=== PATIENT | female | born 1975 | race Caucasian/White ===

== ENCOUNTER 2020-11-22 09:40 | Outpatient (CLI) | payer OTHER, SELFPAY | END 2020-11-22 09:41 | disposition home or self-care (01) | LOC: ANHCOVIDVC 09:41 | PROVIDERS: PCP Internal Medicine | DX: Z23 Encounter for immunization (principal) | CPT/HCPCS: 0001A; 91300 ==

== ENCOUNTER 2020-12-12 08:16 | Outpatient (CLI) | payer OTHER, SELFPAY | END 2020-12-12 08:17 | disposition home or self-care (01) | LOC: ANHCOVIDVC 08:16 | PROVIDERS: PCP Internal Medicine | DX: Z23 Encounter for immunization (principal) | CPT/HCPCS: 0002A; 91300 ==

== ENCOUNTER 2021-10-30 13:12 | Observation (INO) | payer OTHER, SELFPAY ==
--- NOTE | ~2021-10-30 | MR_ITS ---
EXAMINATION: MR brain/brain stem wo/w con DATE: 10/30/2021 19:12 INDICATION: Brain mass. TECHNIQUE: Magnetic resonance imaging (MRI) of the brain and brainstem was performed without and with 12 mL MultiHance intravenous contrast. Sequences included sagittal and axial T1-weighted FSE, axial diffusion-weighted FS EPI, axial T2*-weighted GRE, axial T2-weighted FLAIR Propeller, and axial T2-we ighted Propeller. Postcontrast sequences included axial, sagittal, and coronal T1-weighted FSE. Appar ent diffusion coefficient (ADC) maps were created. COMPARISON: None. FINDINGS: There is a 12 mm cyst in the left frontal lobe deep white matter. There is no intracranial hemorrhage or abnormal mass lesion. The ventricles are normal in size. There is mild mucosal thickeni ng in the ethmoid sinuses. The orbits are normal. IMPRESSION: 1. 12 mm benign cyst in the left frontal lobe deep white matter. Reviewed, dictated and finalized at location E. LER CAREGIVER
--- NOTE | ~2021-10-30 | CT_ITS ---
EXAMINATION: CT brain wo con DATE: 10/30/2021 13:56 INDICATION: 8 days of migraine headache with nausea and vomiting TECHNIQUE: Computed tomography (CT) of the head was performed without intravenous contrast. Sagittal and coronal reconstructions were performed. The mA was adjusted according to patient size. Iterative reconstruction technique was employed. The dose-length product was 605.33 mGy-cm. COMPARISON: None FINDINGS: No acute intracranial hemorrhage, acute infarction or abnormal extra axial fluid collection. Ventricl es are normal and symmetric. There is no left millimeter well-defined intra-axial cystic lesion in th e left frontal lobe without associated surrounding brain edema or solid nodular soft tissue component which favors a benign cyst including neuroenteric, neuroglial cysts. No mass/mass effect. The orbits , paranasal sinuses and mastoid air cells are normal. IMPRESSION: 1. 11 mm intra-axial cystic lesion in the left frontal lobe. The absence of a discernible nodular sof t tissue component or surrounding edema there is a benign cyst over either malignancy or infectious e tiologies but would recommend follow-up pre and postcontrast MRI or CT for more definitive determinat ion. 2. No other acute intracranial process. Reviewed, dictated and finalized at location A. OVOL[employer]IC FABRICATION TECHNICIAN IMPRESSION: 1. 11 mm intra-axial cystic lesion in the left frontal lobe. The absence of a d iscernible nodular soft tissue component or surrounding edema there is a benign cyst over either malignancy or infectious etiologies but would recommend follo w-up pre and postcontrast MRI or CT for more definitive determination. 2. No other acute intracranial process.
[2021-10-30 13:14] VITALS: BP 143/73; PULSE 98; RESP 16; TEMP 36.3; O2SAT 97
[2021-10-30 13:59] LABS: Basophils Absolute Auto 0.1 K/mm3 (0.0-0.1); Basophils Percent Auto 0.6 % (0.2-1.2); Eosinophils Absolute Auto 0.1 K/mm3 (0-0.3); Eosinophils Percent Auto 0.5 % (0-4.4); Hematocrit 47.4 % (37.0-47.0); Hemoglobin 15.5 g/dL (12.0-15.0); Immature Granulocyte Absolute 0.04 K/mm3 (0.00-0.031); Immature Granulocyte Percent A 0.4 % (0-0.5); Lymphocytes Absolute Auto 1.29 K/mm3 (0.9-3.2); Lymphocytes Percent Auto 13.1 % (18.3-44.2); Mean Corpuscular HGB Conc 32.7 g/dl (32-36); Mean Corpuscular Hemoglobin 33.8 pg (26-34); Mean Corpuscular Volume 103.3 fl (80-100); Mean Platelet Volume 12.4 fl (7.4-10.4); Monocytes Absolute Auto 0.7 K/mm3 (0.1-0.6); Monocytes Percent Auto 7.4 % (2.6-8.5); Neutrophils Absolute Auto 7.7 K/mm3 (1.3-6.7); Platelet Count Result 181 k/mm3 (150-375); Red Blood Count 4.59 M/mm3 (4.2-5.4); Red Cell Distribution Width 13.2 % (11.5-14.5); White Blood Count 9.9 K/mm3 (4.5-10.0)
[2021-10-30 14:17] LABS: Alanine Aminotransferase 13 U/L (4-35); Albumin Level 4.5 g/dL (3.5-5.1); Alkaline Phosphatase 65 U/L (38-126); Anion Gap 7 mmol/L (8-16); Aspartate Amino Transferase 23 U/L (14-36); Bilirubin,Total 0.8 mg/dL (0.2-1.3); Blood Urea Nitrogen 13 mg/dL (7-17); Calcium 8.9 mg/dL (8.4-10.2); Carbon Dioxide 24 mmol/L (22-30); Chloride 103 mmol/L (98-107); Estimated CRCL calculation 92 ml/min; Estimated Glomerular Filt Rate > 60; Glucose 106 mg/dL (65-110); Potassium 3.8 mmol/L (3.4-5.0); Sodium 134 mmol/L (137-145)
--- NOTE | 2021-10-30 14:18 | ED.GENADULT ---
HPI - General Adult General Chief complaint: Headache Stated complaint: migraine Time Seen by Provider: 10/30/21 13:24 Source: patient Mode of arrival: ambulatory Limitations: no limitations History of Present Illness HPI narrative: Patient is a 46-year-old female with chief complaint of frontal headache that has been increasingly worsening over the past 8 days.She states originally it was more to the right but now it is more localized to the left side. Patient reports that she has a history of headaches but generally they were made with the use of ibuprofen. Patient reports that she began having nausea with the headache as well and saw her primary care who prescribed her Zofran and tramadol. Patient reports that tramadol does meet the headaches some but after about 4 to 6 hours the intensity comes back. She reports that she has never had a headache be persistent so she became concerned. She reports she does have some photophobia. And hypersensitivity to sound. She reports that she has some of those symptoms on a daily basis that she has some sensory processing disorder. She denies facial asymmetry, changes in her speech, weakness or gait changes. Patient denies any fevers, chills, cough, shortness of breath or other signs of illness. Related Data Home Medications Medication Instructions Recorded Confirmed latanoprost drp 10/30/21 ondansetron 10/30/21 tramadol mg 10/30/21 10/30/21 Allergies Allergy/AdvReac Type Severity Reaction Status Date / Time morphine Allergy Severe Hives / Verified 10/30/21 13:14 Red Face Sulfa (Sulfonamide Allergy Unknown Itching Verified 10/30/21 13:14 Antibiotics) sulfanilamide Allergy Unknown Hives Verified 10/30/21 13:14 Review of Systems Review of Systems: CONSTITUTIONAL: Denies fever, chills, or sweats. EYES: Denies visual changes, redness, or discharge. ENT: Denies rhinorrhea, congestion, sore throat, or otalgia. CARDIOVASCULAR: Denies chest pain, palpitations, or edema. RESPIRATORY: Denies cough or dyspnea. GASTROINTESTINAL: Denies abdominal pain, nausea, vomiting, or diarrhea. GENITOURINARY: Denies dysuria or hematuria. SKIN: Denies rash or itching. MUSCULOSKELETAL: Denies back pain, joint pain, or myalgia. NEUROLOGIC: Reports headache, denies numbness, dizziness, or weakness. PSYCHIATRIC: Denies anxiety or depression. [facility] Family History Family History (Updated 04/17/16 @ 23:19 by DOCTOR UNKNOWN) Mother Family history of liver disease Family history of chronic obstructive pulmonary disease Family history of diabetes mellitus in first degree relative Family history of heart disease in male family member before age 55 Other Depression Diabetes mellitus Family history of malignant neoplasm Family history of mental disorder Hypertension Social History Social History Alcohol intake: current Exam Narrative: GENERAL: Well-appearing, well-nourished, and in no acute distress. HEAD: Normocephalic, atraumatic. EYES: PERRLA and EOMI. ENT: Nares clear, no rhinorrhea or epistaxis. Mucous membranes moist. Oropharynx without tonsillar hypertrophy exudate or other lesions. Bilateral TMs pearly davis nonbulging. No hemotympanum. NECK: Supple. Range of motion intact without rigidity. CHEST: Clear to auscultation. No respiratory distress. No wheezes rales or rhonchi HEART: Regular rate and rhythm. No murmur heard. Normal peripheral pulses. EXTREMITIES: Normal range of motion. No edema. SKIN: Warm, dry, no rash. NEURO: No focal deficits. Alert and oriented x3. Steady gait. Strength equal to extremities. heel and toe walk normal. PSYCH: Normal mood and affect. Course Vital Signs Vital signs: Vital Signs Temperature 97.4 F L 10/30/21 13:14 Pulse Rate 98 10/30/21 13:14 Respiratory Rate 16 10/30/21 13:14 Blood Pressure 143/73 H 10/30/21 13:14 Pulse Oximetry 97 10/30/21 13:14 Temperature 97.4 F L 10/30/21 13:14 Pulse Rate 96 0
[2021-10-30 15:07] LABS: Add Urine Microscopic? YES; Appearance Urine Clear (Clear); Bilirubin Urine Negative (Negative); Blood Urine Negative (Negative); Color Urine Yellow (Yellow); Glucose Urine UA Negative (Negative); Ketones Urine 2+ mg/dL (Negative); Leukocyte Esterase Ur Negative LEU/UL (Negative); Mucus Urine Rare /lpf; Nitrate Urine Negative (Negative); Protein Urine Negative (Negative); RBC Urine 0-2 /hpf (0-2); Specific Grav Ur 1.012 (1.001-1.035); Squamous Epithelial Cell Urine Rare /hpf (Few); Urobilinogen Urine Negative mg/dL (<2.0); WBC Urine 0-3 /hpf
[2021-10-30] MEDS: SODIUM CHLORIDE 0.9% IV 1,000 ML 999 ML IV CONT (15:46)
[2021-10-30] MEDS: diphenhydrAMINE HCl INJ 50 MG/ML VIAL 25 MG IV PUSH (15:47)
[2021-10-30] MEDS: KETOROLAC 15 MG/ML VIAL (*BKC) IV PUSH ×2 (15:48→21:03)
[2021-10-30 16:35] VITALS: BP 112/56; PULSE 96; RESP 16; O2SAT 99
--- NOTE | 2021-10-30 16:49 | ADMGEN ---
This patient, Carol Sanches, was admitted to 2 Medical Room 261-01. Patient/family oriented to hospital policies and general routines including ID bracelet, bed and alarms, visiting hours, pain management, procedures, bathroom and other care routines, personal items, smoking policy, room service/diet, and visiting hours. Information on how to activate the Rapid Response Team has been discussed. Patient/Family are encouraged to report perceived risks to care and to ask questions if they do not understand what they are told or what they should do.
[2021-10-30 18:19] VITALS: O2SAT 99
[2021-10-30 18:39] VITALS: BP 110/70; PULSE 81; RESP 15; TEMP 36.4; O2SAT 97
[2021-10-30 19:40] VITALS: BP 98/46; PULSE 81; RESP 18; TEMP 36.6; O2SAT 98
[2021-10-30 20:56] VITALS: O2SAT 98
--- NOTE | 2021-10-30 21:12 | PM.IMHP ---
H&P: HPI History of Present Illness Date/Time: 10/30/21 21:12 this is a 46-year-old female patient who has a history of having headaches versus migraines. 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 The patient came to the emergency room today with a frontal headache that has been getting worse over the last 8 days. The patient stated that she has had several CT scans and MRIs in the past and have not seen any thing abnormal. It the patient also has been having nausea and was prescribed Zofran and tramadol via primary care doctor. The tramadol does relieve the headaches some but also makes her nauseated as well. The patient was having some phonophobia and hypersensitivity to sound earlier today. The symptoms have been daily for the last 8 days. Patient has facial symmetric a and no changes in her speech. She has no weakness or gait changes. She denies any fever chills. Brain CT was read as the following1. 11 mm intra-axial cystic lesion in the left frontal lobe. The absence of a discernible nodular soft tissue component or surrounding edema there is a benign cyst over either malignancy or infectious etiologies but would recommend follow-up pre and postcontrast MRI or CT for more definitive determination. 2. No other acute intracranial process. the ED provider called [facility]geon who recommended that the patient have an MRI. MRI is are not able to be performed from the emergency room. I discussed the case with Dr. Garcia who was agreeable with admitting the patient into the hospital. Patient did have an MRI performed at the recommendation of [facility]. Again and was read as 12 mm benign cyst in the left frontal lobe deep white matter. The patient was given IV fluids Benadryl Toradol and Decadron in the emergency room. ( ED physician here noted it her conversation with neurosurgeon: Consult with [facility] Dr Gallardo who has reviewed patient CT. He suspects benign finding, but requires MRI w&w/o. He will place patient on waiting list for [facility]. He recommends admission to hospitalist service o patient can have MRI. then push those images to [facility] and he will review and give further instruction. He states if MRI is appropriate for outpatient follow up the patient can be d/c at that time, but If patient requires transfer it can be done via hospitalist service. He states patient pain could be treated without restriction to migraine/pain protocol. Patient has been updated on plan of care.) the patient is being admitted to observation status on the date of service of to 07/09/2022. Chief Complaint: Headache and nausea Review of Systems Review of Systems: All systems reviewed & are unremarkable except as noted in HPI and below Constitutional: Constitutional: Reports as per HPI and Reports no additional constitutional complaints Eyes: Eyes: Reports as per HPI and Reports no additional eye complaints ENT: Reports system reviewed and no additional complaints, except as documented and Reports Normal hearing present Cardiovascular: Cardiovascular: Reports no additional cardiovascular complaints Respiratory: Respiratory: Reports no additional respiratory complaints and Reports no additional respiratory complaints Gastrointestinal: Gastrointestinal: Reports as per HPI and Reports no additional gastrointestinal complaints Musculoskeletal: Musculoskeletal: Reports no additional musculoskeletal complaints Integumentary/Breasts: Skin/Breast: Reports system reviewed and no additional complaints, except as docu and Reports as per HPI Neurologic: Reports system reviewed and no additional complaints, except as documented, Reports as per HPI and Reports Normal hearing present Psychiatric: Psychiatric: Reports no additional psychiatric complaints and Reports as per HPI Endocrine: Endocrine: Reports no additional endocrine complaints
[2021-10-30] MEDS: SUMAtriptan SUCCINATE 6 MG/0.5 ML VIAL SUB-Q (21:49)
[2021-10-30] MEDS: ONDANSETRON INJ 4 MG/2 ML VIAL IV PUSH (21:57)
[2021-10-31] MEDS: SODIUM CHLORIDE 0.9% IV 1,000 ML 100 ML IV CONT ×2 (00:36→10:41)
[2021-10-31 05:10] VITALS: BP 98/54; PULSE 97; RESP 18; TEMP 36; O2SAT 99
[2021-10-31 06:01] LABS: Basophils Percent Auto 0.2 % (0.2-1.2); Hematocrit 42.4 % (37.0-47.0); Hemoglobin 13.6 g/dL (12.0-15.0); Immature Granulocyte Absolute 0.04 K/mm3 (0.00-0.031); Immature Granulocyte Percent A 0.4 % (0-0.5); Mean Corpuscular HGB Conc 32.1 g/dl (32-36); Mean Corpuscular Hemoglobin 33.4 pg (26-34); Mean Corpuscular Volume 104.2 fl (80-100); Mean Platelet Volume 12.2 fl (7.4-10.4); Monocytes Absolute Auto 0.3 K/mm3 (0.1-0.6); Monocytes Percent Auto 2.6 % (2.6-8.5); Neutrophils Absolute Auto 8.9 K/mm3 (1.3-6.7); Neutrophils Percent Auto 88.8 % (45.5-73.1); Platelet Count Result 171 k/mm3 (150-375); Red Blood Count 4.07 M/mm3 (4.2-5.4); Red Cell Distribution Width 13.1 % (11.5-14.5)
[2021-10-31 06:15] LABS: Lactic Acid Reflex 0.8 mmol/L (0.7-2.1)
[2021-10-31 06:19] LABS: Alanine Aminotransferase 11 U/L (4-35); Albumin Level 3.8 g/dL (3.5-5.1); Alkaline Phosphatase 44 U/L (38-126); Anion Gap 8 mmol/L (8-16); Aspartate Amino Transferase 23 U/L (14-36); Bilirubin,Total 0.8 mg/dL (0.2-1.3); Blood Urea Nitrogen 16 mg/dL (7-17); Calcium 8.6 mg/dL (8.4-10.2); Carbon Dioxide 17 mmol/L (22-30); Chloride 110 mmol/L (98-107); Estimated CRCL calculation 92 ml/min; Estimated Glomerular Filt Rate > 60; Glucose 115 mg/dL (65-110); Magnesium 1.9 mg/dL (1.6-2.3); Potassium 4.5 mmol/L (3.4-5.0); Sodium 135 mmol/L (137-145)
[2021-10-31 06:43] LABS: Vitamin D 25 Hydroxy 12.9 ng/mL
[2021-10-31 07:02] LABS: Thyroid Stimulating Hormone Reflex 0.226 uIU/mL (0.465-4.68)
[2021-10-31 08:01] LABS: Free T4 Free Thyroxine Reflex 1.11 ng/dL (0.78-2.19)
[2021-10-31] MEDS: ONDANSETRON INJ 4 MG/2 ML VIAL IV PUSH (08:17)
[2021-10-31] MEDS: PANTOPRAZOLE SODIUM IV 40 MG VIAL IV PUSH ×2 (08:17→21:04)
[2021-10-31 08:50] LABS: SARS-CoV-2 RNA PCR Negative
[2021-10-31] MEDS: KETOROLAC 15 MG/ML VIAL (*BKC) IV PUSH ×2 (10:42→23:43)
--- NOTE | 2021-10-31 11:11 | WPDNEURCNPN ---
Assessment and Plan Additional Plan 1 11mm intra-axial cystic lesion in the left frontal lobe with no sirena cystic edema for which MRI was indicated and MRI was followed with ,which documented 12mm benign cyst in the left frontal lobe deep white matter 2. recurrent migraines and treatment as planned Consult date: 10/31/21 HPI: Carol Sanches is a 46 year old female admitted to the hospital for the complaints of frontal headaches of increasing severity over the last 8 days and more localized on the left side in addition to the ongoing history of chronic headaches for which she has been taking simple pain medications regularly. This time with the headache, she started having nausea initially she saw her primary care physician who prescribed Zofran and tramadol , headaches were somewhat relieved but subsequently became more intense ,she has never had such a bad headache which is persistent in duration but she gave no history of generalized symptomatology ,her home medications included tramadol initial examination was normal that is nonfocal but it was documented that she has the history of diabetes mellitus and depression [facility] was consulted because of the increasing severity headache and with no history of such headaches in the past and also abnormal ct head , he placed the patient on the waiting list and suggested to have the MRI, investigations here documented 11mm intra-axial cystic lesion in the left frontal lobe which could be a benign cyst further evaluation recommended Review of Systems Review of Systems: All systems reviewed & are unremarkable except as noted in HPI and below PMFSH Past Medical History Medical History Chronic back pain Glaucoma Surgical History Surgical History H/O left breast biopsy benign H/O tubal ligation History of endometrial ablation Family History Family History Mother Family history of liver disease Family history of chronic obstructive pulmonary disease Family history of diabetes mellitus in first degree relative Family history of heart disease in male family member before age 55 Other Depression Diabetes mellitus Family history of malignant neoplasm Family history of mental disorder Hypertension Social History Social History Social History: the patient is and lives with her . It she has 3 children. She is no longer working due to a back injury. The patient continues to smoke about half a pack a cigarettes to a pack a cigarettes a day. She is not interested in smoking cessation the patient denies any alcohol marijuana or illicit drugs. Her is her durable power bankruptcy attorney for healthcare. Code status full code Smoking packs per day: 0.5 Smoking cigarettes per day: 10.0 Smoking status: Current every day smoker Tobacco type: cigarettes Alcohol intake: never Substance use: never Spiritual care concerns: No Meds Home Medications and Allergies Home Medications Medication Instructions Recorded Confirmed Type ondansetron 4 mg PO Q6H PRN 10/30/21 10/30/21 History tramadol 50 mg PO Q6H PRN 10/30/21 10/30/21 History Allergies Allergy/AdvReac Type Severity Reaction Status Date / Time morphine Allergy Severe Hives / Verified 10/30/21 13:14 Red Face Sulfa (Sulfonamide Allergy Unknown Itching Verified 10/30/21 13:14 Antibiotics) sulfanilamide Allergy Unknown Hives Verified 10/30/21 13:14 Vital Signs Vital Signs - 24 hr 10/30/21 13:14 10/30/21 16:35 10/30/21 18:19 Temperature 36.3 C L Pulse Rate 98 96 Respiratory Rate 16 16 Blood Pressure 143/73 H 112/56 L Pulse Oximetry 97 99 99 10/30/21 18:39 10/30/21 19:40 10/30/21 20:56 Temperature 36.4 C 36.6 C Pulse Rate 81 81 Respiratory Rate 15 18 Blood Pressure 11
[2021-10-31 11:49] LABS: Total Triiodothyronine (T3) 0.99 NG/ML (0.97-1.69)
--- NOTE | 2021-10-31 13:01 | PM.IMPN ---
Progress Note: A&P Assessment and Plan (1) Headache: Qualifiers: Headache chronicity pattern: acute headache Headache type: unspecified Intractability: not intractable Qualified Code(s): R51.9 - Headache, unspecified Code(s): R51.9 - Headache, unspecified Status: Acute Assessment and Plan: Hx of high-level of estrogen at times Usually Motrin or Ultram takes care of her headaches versus migraines Continue Fioricet Supportive care CT of head reviewed MRI-->12 mm benign cyst in the left frontal lobe deep white matter Neurology consulted, recommendations appreciated (2) Glaucoma: Code(s): H40.9 - Unspecified glaucoma Status: Chronic Assessment and Plan: Continue home meds (3) Chronic back pain: Code(s): M54.9 - Dorsalgia, unspecified; G89.29 - Other chronic pain Status: Chronic Assessment and Plan: Continue home meds (4) Brain lesion: Code(s): G93.9 - Disorder of brain, unspecified Status: Acute Assessment and Plan: [facility]geon, Dr. Sam, reviewed CT and suspects benign finding, but requires MRI w&w/ Patient on waiting list for [facility] outpatient Subjective Date/time seen: 10/31/21 13:01 Interval history: Pt seen and evaluated; labs, vs,diagnostic results, consult notes reviewed; pt continue with MARINO 03/29 Review of Systems Review of Systems: All systems reviewed & are unremarkable except as noted in HPI and below Exam Const: General: no acute distress, alert and awake Orientation/consciousness: patient oriented x3 HENMT: Head: normocephalic and atraumatic Ears: hearing grossly normal bilaterally and external ears normal Face and sinus: face symmetric Mouth: Yes Normal oral and palatal mucosa present Eyes: EOM: EOMs intact bilaterally Neck: Neck: full ROM, trachea midline and no JVD Resp: Effort & Inspection: normal respiratory effort Auscultation: clear to auscultation bilaterally Cardio: Jugular venous distension: no JVD Rate: regular rate Rhythm: regular rhythm Heart sounds: S1 normal heart sound present and S2 normal heart sound present GI: Inspection: normal to inspection GI Palp: Yes Soft to palpation Percussion: Yes normal to percussion Auscultation: normal bowel sounds : General: Yes no CVA tenderness Skin: General skin exam: normal color Rashes: no rashes Neuro: General: patient oriented x3 and no focal motor deficits Speech: normal speech Extrem: General: no clubbing, cyanosis or edema Psych: Appearance: grossly normal Affect: normal affect Judgement: Good judgement present (Psych) Objective Data Vital Signs Vital Signs: Vital Signs - 24 hr 10/30/21 13:14 10/30/21 16:35 10/30/21 18:19 Temperature 36.3 C L Pulse Rate 98 96 Respiratory Rate 16 16 Blood Pressure 143/73 H 112/56 L Pulse Oximetry 97 99 99 10/30/21 18:39 10/30/21 19:40 10/30/21 20:56 Temperature 36.4 C 36.6 C Pulse Rate 81 81 Respiratory Rate 15 18 Blood Pressure 110/70 98/46 L Pulse Oximetry 97 98 98 10/31/21 05:10 Temperature 36.0 C L Pulse Rate 97 Respiratory Rate 18 Blood Pressure 98/54 L Pulse Oximetry 99 Intake/Output Intake/Output: Intake & Output 10/28/21 10/29/21 10/30/21 10/31/21 23:59 23:59 23:59 23:59 Intake Total 1000 1000 Output Total 300 Balance 1000 700 Meds/Results Medications: Active Medications Generic Name Dose Route Start Last Admin Trade Name Freq PRN Reason Stop Dose Admin Diphenhydramine HCl 25 mg 10/30/21 21:11 Diphenhydramine Hcl Inj 50 Mg/Ml Vial IV PUSH Q4H PRN Itching Sodium Chloride 1,000 mls @ 100 mls/hr 10/30/21 23:15 10/31/21 10:41 Normal Saline Iv IV CONT 100 mls/hr .Q10H JEVON Administration Acetaminophen 1,000 mg in 100 mls @ 400 mls/hr 10/30/21 23:14 Ofirmev 1,000 Mg Ivpb IVPB 10/31/21 23:13 Q6H PRN Pain Rated 4-6 Ketorolac Tromethamine 15 mg 10/30/21 20:44 10/31/21 1
[2021-10-31 14:00] VITALS: BP 108/52; PULSE 73; RESP 18; TEMP 36.4; O2SAT 98
[2021-10-31 20:28] VITALS: BP 100/58; PULSE 68; RESP 18; TEMP 37; O2SAT 99
--- NOTE | 2021-10-31 22:56 | PC.NURSE ---
Called with room at [place] [id number] Bed 1. Called and Spoke with Corwin saunders soon to be nurse at [facility]. Call placed to [facility]. They said they would probably be about an hour. Called [facility] back with estimated time of an hour from call placed at [phone]. Nicole Salcido aware and signed patient transfer form. it service continuity supervisor also aware that pt is transferring to [facility]. Disc from x ray added to transfer folder.
--- NOTE | 2021-10-31 23:47 | PC.NURSE ---
ambulance is leaving at [id number]. Pt on way to [place].
--- NOTE | 2021-11-05 12:02 | PM.TDS ---
Transfer Discharge Sum: Prov Provider Date of admission: 10/30/21 15:52 Primary care physician: Todd Bonds, Admitting clinician: Dale Garcia MD Consults: 10/30/21 Consult to Physician Routine Comment: Consulting Provider: Gustavo Oconnor at home independent call center agent/MD group to consult: Neurology Reason for consultation: benign frontal lobe cyst with headaches Has provider been notified: Yes DS: Admitting Diagnosis Discharge Date 10/31/21benign brain tumor Admitting Diagnosis benign brain tumor DS: Discharge Diagnosis Discharge Diagnosis (1) Brain lesion: Code(s): G93.9 - Disorder of brain, unspecified Status: Acute Assessment and Plan: Head CT 10/30/21 14:04 IMPRESSION: 1. 11 mm intra-axial cystic lesion in the left frontal lobe. The absence of a discernible nodular soft tissue component or surrounding edema there is a benign cyst over either malignancy or infectious etiologies but would recommend follow-up pre and postcontrast MRI or CT for more definitive determination. 2. No other acute intracranial process. (2) Headache: Qualifiers: Headache chronicity pattern: acute headache Headache type: unspecified Intractability: not intractable Qualified Code(s): R51.9 - Headache, unspecified Code(s): R51.9 - Headache, unspecified Status: Acute Assessment and Plan: could be related to hormones. The patient stated that she has a high-level of estrogen at times. I recommended multiple therapies for the patient however the patient stated that this is chronic and that usually Motrin or Ultram takes care of her headaches versus migraines. I continued with Zofran and she stated that the tramadol has not been helping so I did continue with that. She stated that the Toradol did help so I continue with that and gave her Zofran and Protonix for GI protection. I continued with the Benadryl as the patient stated this did help her some. I ordered Imitrex as well I asked her Fioricet helped her in the past and she stated she does not recall taking that. However her blood pressure is low at this time and I do not think that it is appropriate to give narcotics at this time. A benign frontal lobe cyst was found And the ED provider at [facility] spoke with the neurosurgeon at [facility]. they requested to have the MRI push through so they can review it. I also consulted the neurologist here. I spoke to Dr. Garcia who agreed that the patient could be admitted into the hospital here I also spoke with Dr. Li who recommended steroids if the patient has any neurological deficits or cerebral edema. The patient appears to have neither so I did not start any steroids. (2) Glaucoma: (3) Glaucoma: Code(s): H40.9 - Unspecified glaucoma Status: Chronic (4) Chronic back pain: Code(s): M54.9 - Dorsalgia, unspecified; G89.29 - Other chronic pain Status: Chronic Assessment and Plan: The patient takes ultram Transfer Discharge Sum: Med Medications Active and Home Medications: Home Medications ondansetron 4 mg PO Q6H PRN 10/30/21 [History Confirmed 10/30/21] tramadol 50 mg PO Q6H PRN 10/30/21 [History Confirmed 10/30/21] The patient was transferred to [facility] to neuro surgery. Transfer Discharge Sum: Hosp Hospital Course Hospital course: Date/Time: 10/30/21 21:12 this is a 46-year-old female patient who has a history of having headaches versus migraines. 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 The patient came to the emergency room today with a frontal headache that has been getting worse over the last 8 days. The patient stated that she has had several CT scans and MRIs in the past and have not seen any thing abnormal. It the patient also has been having nausea and was prescribed Zofran and tramadol via primary care doctor. The tramadol finney
== END 2021-10-31 23:50 | disposition short-term general hospital (02) ==
LOC: ANHED 16:18 → ANH2MED 16:21
PROVIDERS: Nurse Practitioner; Physician Assistant; Admitting Provider Family Medicine; Emergency Provider Emergency Medicine; PCP Internal Medicine; Visit Provider Family Medicine
DX: G93.9 Disorder of brain, unspecified (principal); R51.9 Headache, unspecified; M54.9 Dorsalgia, unspecified; G89.29 Other chronic pain; H40.9 Unspecified glaucoma; F17.210 Nicotine dependence, cigarettes, uncomplicated; Z20.822 Contact with and (suspected) exposure to COVID-19; Z79.899 Other long term (current) drug therapy
CPT/HCPCS: 36415; 70450; 70553; 80053; 81001; 82306; 82728; 83605; 83735; 84439; 84443; 84480; 85025; 96361; 96372; 96374; 96375; 96376; 99285; A9577; C9113; C9803; G0378; G0379; J1100; J1200; J1885; J2405; J3030; J7030; U0003; U0005

== ENCOUNTER 2024-01-26 08:18 | Outpatient (CLI) | payer OTHER, SELFPAY | END 2024-01-26 08:19 | disposition home or self-care (01) | LOC: ANHSURGERY 08:24 | PROVIDERS: PCP Internal Medicine; Visit Provider Obstetrics & Gynecology | DX: Z01.818 Encounter for other preprocedural examination (principal); D25.9 Leiomyoma of uterus, unspecified | CPT/HCPCS: 36415; 86850; 86900; 86901 ==

== ENCOUNTER 2024-01-31 00:55 | Day surgery (SDC) | payer OTHER, SELFPAY ==
[2024-01-25 13:32] VITALS: BMI 27.1
--- NOTE | 2024-01-25 13:43 | PC.NURSE ---
Report to the Outpatient Waiting Room, entrance under the green pavilion located off [facility], at time _0600_ on date _21-23-2047_. Planned Procedure Time: _0730_. Time changes happen often and if your time is changed the preop area will call you the afternoon before. - You and your visitor will be asked to self-screen and do not enter if you have any COVID symptoms. - A mask is optional within the hospital at this time. Patients may have clear liquids (water, carbonated beverages, clear teas, apple juice) until 3 hours prior to surgery with a maximum of 20 ounces. - No food from midnight until time of surgery Take the following medications with a SIP of water the morning of surgery: ___Ubelvey if needed. DO NOT STOP ANY OF YOUR OTHER PRESCRIPTION MEDICATIONS PRIOR TO SURGERY ?EXCEPT THE FOLLOWING Medications to discontinue per physician ___All vitamins Date to take last [id number] Please no make-up, nail persian, hairspray, perfume, deodorant, or body powder the day of surgery. No jewelry (including any body piercings) or valuables the day of surgery, leave them at home. Please take a shower or bath the night before, or the morning of, surgery with an antibacterial soap. Wear comfortable, loose fitting clothing. - Jewelry must be removed prior to entering the operating room. Rings and piercings that are not removed may be cut off. - The hospital will not accept responsibility for valuables. - Please leave all valuables, including medications, at home the day of surgery. If you are going home after surgery, a licensed restaurant delivery driver must drive you home. - NO public transportation without another adult if you receive anesthesia. - We recommend that an adult stay with you for 24 hours following discharge. - We also recommend that you do not drive, make important decision, drink alcoholic beverages, or take any drugs that were not prescribed by your health care provider for at least 24 hours after your discharge time. Follow any additional instructions given to you from your surgeon. If you or anyone in your household have experienced Covid symptoms in the past week, please notify your surgeon or the nurse liaison at the phone number below for possible testing. Telephone instructions given to __Renae___and asked if any additional questions and then verbalized understanding. Patient advised to call surgeon office or pre surgery nurse liaison [phone] if any additional questions.
--- NOTE | 2024-01-30 20:42 | PM.IMHP ---
H&P: HPI History of Present Illness Date/Time: 01/30/24 20:42 Chief Complaint: pelvic pain Narrative: Carol is a 49yo [id number], who presents for scheduled surgery. She has had pelvic pain since about April 2023 and her PCP ordered a CNC SPECIALIST US which showed two small fibroids, no cysts. She has a h/o tubal. 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 But the ablation did not help with her pain. Since Apr 2023, the pain has gotten significantly worse. She reports not being able to lay on her right side at night due to the pain. She also feels a lot of PMS/mood changes during the month. The week after her period is the only time she feels normal . Most of her pain is on the RLQ; did have some issues (extra bleeding, issue with her incision during her tubal and can feel some pulling on the inside from that). She denies any menopausal symptoms of hot flashes or night sweats. Aygestin was not covered by her insurance, so she has been taking Norethindrone. She reports it has not helped at all with her PMS or pain. She is very frustrated with her pain and understands that the next step is hysterectomy and she's ready for that. She is about to start her cycle and reports her right sided pelvic pain is severe and has pain into her back. She is having to rearrange her life/work to deal with this pain. Review of Systems Constitutional: Constitutional: Denies chills, Denies fever(s) and Denies headache(s) Eyes: Eyes: Denies change in vision ENT: Denies dizziness and Denies headache(s) Cardiovascular: Cardiovascular: Denies chest pain and Denies dyspnea Respiratory: Respiratory: Denies cough and Denies dyspnea Gastrointestinal: Gastrointestinal: Denies abdominal pain and Denies change in stool character Genitourinary: Genitourinary: Denies abnormal menses, Reports pelvic pain, Denies vaginal discharge, Denies vaginal odor and Denies vaginal pruritus Neurologic: Denies dizziness and Denies headache(s) Psychiatric: Psychiatric: Denies anxiety and Denies depression [facility] Past Medical History Medical History Chronic back pain Glaucoma Surgical History Surgical History H/O left breast biopsy benign H/O tubal ligation History of dilation and curettage 1999 History of endometrial ablation Family History Family History Mother Family history of liver disease Family history of chronic obstructive pulmonary disease Family history of diabetes mellitus in first degree relative Family history of heart disease in male family member before age 55 Sibling Sjogren syndrome, unspecified Other Depression Diabetes mellitus Family history of malignant neoplasm Family history of mental disorder Hypertension Social History Social History Social History: the patient is and lives with her . It she has 3 children. She is no longer working due to a back injury. The patient continues to smoke about half a pack a cigarettes to a pack a cigarettes a day. She is not interested in smoking cessation the patient denies any alcohol marijuana or illicit drugs. Her is her durable power deputy commonwealth's attorney for healthcare. Code status full code Smoking packs per day: 1.5 Smoking cigarettes per day: 30.0 Years smoked: 12 Smoking pack-years: 18.00 Smoking status: Former smoker Tobacco type: cigarettes Smoking end date: 01/24/22 Alcohol intake: never Substance use: never Substance use type: does not use Do You Feel Safe in your Home?: Yes Lack of Transportation: No Lack of Food: Never True Current Housing: I Have Housing Concerned About Future Housing: No Difficulty Paying Gas/Electric [place]
[2024-01-31] VITALS (10 sets, daily range): BP systolic 100–138; BP diastolic 51–87; PULSE 70–119; RESP 12–18; TEMP 36.1–37.1; O2SAT 94–100
[2024-01-31] MEDS: LACTATED RINGERS 1,000 ML 30 ML IV CONT ×2 (06:50→09:27)
[2024-01-31] MEDS: KETOROLAC 15 MG/ML VIAL (*BKC) IV PUSH (06:51)
[2024-01-31] MEDS: SCOPOLAMINE 1 MG PATCH 1 PATCH TRANSDERM (06:53)
--- NOTE | 2024-01-31 07:13 | WPDHPUPDATE1 ---
History and Physical Update Update Date/Time: 01/31/24 07:13 History and Physical has been reviewed, including an updated exam of the patient. There are NO changes in the patient's condition. Risks, benefits, and alternatives have been discussed and questions answered. Patient agrees to proceed with robotic assisted total laparoscopic hysterectomy with bilateral salpingectomy and cystoscopy.
--- NOTE | 2024-01-31 07:16 | WPDANESEPPF ---
Anes - Initial Pre Proc Eval Procedure: Operation Date: 01/31/24 07:30 Proposed Procedures p Robotic Assisted Total Laparoscopic Hysterectomy with Bilateral Salpingectomy - Jane Hernandez MD Date/Time: 01/31/24 07:16 Surgeon: Jane Hernandez MD Pre Op Diagnosis: uterine fibroids Patient Data Age: 49 Gender: F Height: 1.57 m Weight: 67.6 kg Last Vital Signs Temp 98.2 F 01/31/24 06:12 Pulse 119 H 01/31/24 06:12 Resp 18 01/31/24 06:12 BP 138/87 01/31/24 06:12 Pulse Ox 98 01/31/24 06:12 O2 Del Method Room Air 01/31/24 06:12 Allergies Allergy/AdvReac Type Severity Reaction Status Date / Time morphine Allergy Severe Hives / Verified 01/31/24 06:27 Red Face Sulfa (Sulfonamide Allergy Severe Itching Verified 01/31/24 06:27 Antibiotics) sulfanilamide Allergy Severe Hives Verified 01/31/24 06:27 metoclopramide [From Reglan] AdvReac Severe Anxiety Verified 01/31/24 06:27 prochlorperazine AdvReac Severe Anxiety Verified 01/31/24 06:27 [From Compazine] cetirizine [From Zyrtec-D] AdvReac Mild Other Verified 01/31/24 06:27 pseudoephedrine AdvReac Mild Other Verified 01/31/24 06:27 [From Zyrtec-D] Home Medications Medication Instructions Recorded Confirmed Type ubrogepant 50 mg tablet (Ubrelvy) 100 mg PO DAILY PRN Migraine 11/10/23 01/31/24 History Headache norethindrone (contraceptive) 0.35 0.35 mg PO DAILY #84 tabs 11/16/23 01/31/24 Rx mg tablet Lactobacillus 40-Bifidobact 1 cap PO DAILY 01/25/24 01/31/24 History 3-S.thermophilus 100 billion cell capsule (Probiotic) cyanocobalamin (vitamin B-12) 1,000 mcg PO DAILY 01/25/24 01/31/24 History 1,000 mcg tablet (Vitamin B-12) magnesium glycinate 100 mg tablet 200 mg PO DAILY 01/25/24 01/31/24 History thiamine HCl (vitamin B1) 100 mg 100 mg PO DAILY 01/25/24 01/31/24 History tablet (Vitamin B-1) Patient hx anesthesia problems: post op nausea/vomiting Family hx anesthesia problems: none Results Review: All pre-operative results and documents have been reviewed as part of the pre-operative evaluation. [facility] Past Medical History Medical History Chronic back pain Glaucoma Surgical History Surgical History H/O left breast biopsy benign H/O tubal ligation History of dilation and curettage 1998 History of endometrial ablation Family History Family History Mother Family history of liver disease Family history of chronic obstructive pulmonary disease Family history of diabetes mellitus in first degree relative Family history of heart disease in male family member before age 55 Sibling Sjogren syndrome, unspecified Other Depression Diabetes mellitus Family history of malignant neoplasm Family history of mental disorder Hypertension Social History Social History Social History: the patient is and lives with her . It she has 3 children. She is no longer working due to a back injury. The patient continues to smoke about half a pack a cigarettes to a pack a cigarettes a day. She is not interested in smoking cessation the patient denies any alcohol marijuana or illicit drugs. Her is her durable power sports attorney for healthcare. Code status full code Smoking packs per day: 1.5 Smoking cigarettes per day: 30.0 Years smoked: 12 Smoking pack-years: 18.00 Smoking status: Former smoker Tobacco type: cigarettes Smoking end date: 01/24/22 Alcohol intake: never Substance use: never Substance use type: does not use Do You Feel Safe in your Home?: Yes Lack of Transportation: No Lack of Food: Never True Current Housing: I Have Housing Concerned About Future Housing: No Difficulty Paying Gas/Electric Bills: No Difficulty Paying fo
[2024-01-31] MEDS: ceFAZolin 2 GM/D5W 50 ML 2 GM/50 ML BAG IVPB (07:28)
[2024-01-31] MEDS: metroNIDAZOLE 500 MG/ISO 100ML 500 MG/100 ML BAG 100 MG IVPB (07:35)
[2024-01-31] MEDS: LIDO 1%/EPINEPHRINE 1:100,000 20 ML VIAL 30 ML INFILTRATE (08:58)
--- NOTE | 2024-01-31 09:24 | W.PM.PROC2 ---
Procedure Note - Detailed Date of Procedure 01/31/24 Pre-op Diagnosis Uterine fibroids Pelvic pain Post-op Diagnosis Same Procedure Performed Robotic assisted total laparoscopic hysterectomy with bilateral salpingectomy and cystoscopy Surgeon Jane Hernandez MD Corporate Travel Manager [employer] Anesthesia General and Local (20cc of 1% lidocaine w/ epi) Findings Uterus only sounded to 7cm; but had h/o ablation. Normal appearing multiparous cervix, 3cm. History of tubal ligation. Left ovary with 2-3cm simple appearing cyst. Right ovary normal. Small amount of endometriosis noted on bladder and posterior cul de sac. Normal bladder without lesions/masses that filled w/o issues. Bilateral ureteral efflux noted. Good hemostasis at end of case. Uterus/tubes: 186g Description of Procedure Carol was taken to the operating room where she was placed under general anesthesia without issues. She received 2 g Ancef and 500mg Metronidazole. She was then prepped and draped in the usual sterile fashion in the dorsal lithotomy position with her legs in low Harshal stirrups, her arms tucked at her side, with a strap over her chest. A time-out was performed. My attention was turned down below where a choi catheter was placed. A bivalve speculum was placed within the vagina. The cervix was easily identified and the anterior lip of the cervix was grasped with single-tooth tenaculum. The uterus was then sounded to 7cm. The cervix was serially dilated to allow for the MUARICE uterine manipulator; which was placed w/o issue (6cm tip with 3cm cervical ring). My gloves were changed and attention was then turned to the abdomen. A 5 mm trocar was placed under direct visualization at Avendano's point without issue. Once intra-abdominal placement was confirmed, the abdomen was insufflated with carbon dioxide gas. An abdominal survey was performed and the above findings were noted. Two additional ports were placed on the right and left side and the camera port was placed supra-umbilically under direct visualization without issues. The 5mm port was switched out for the accessory port under direct visualization. The patient was then placed in deep Trendelenburg, with the legs slightly lowered. The robot was then docked. The instruments were placed intra-abdominally under direct visualization. I then un-scrubbed and went to the robotic console. I then started my hysterectomy on the right side. The ureter was easily identified transperitoneally and well out of the surgical field. The fallopian tube was elevated and the mesosalpinx was coagulated and transected. The round ligament was clamped, coagulated, and transected. The uterine ovarian artery was then serially clamped, coagulated, and transected with good hemostasis. The broad ligament was then dissected anteriorly and posteriorly skeletonizing the uterine artery. The bladder flap was then developed on the right side and carried around the left, anteriorly. The uterine artery was then serially clamped and coagulated. Once the vessel was adequately coagulated, it was then transected with good hemostasis. The same procedure was then performed on the left side without complications. The uterus was noted to be devascularized. The bladder flap was verified out of the surgical field and the colpotomy was started anteriorly and continued in a clockwise fashion until the uterus was released. The uterus was removed from the abdomen via the vagina without complications. The vaginal cuff had small bleeders that were made hemostatic without complications. The vaginal cuff was then reapproximated using a 0 V lock suture. The pelvis was then irrigated and suctioned free of all clots and debris. Good hemostasis was noted. All instruments were removed from the abdomen and the robot was undocked. I then scrubbed back in and verified that the cuff was intact without any defects. The Choi catheter was then removed. The cystoscope was placed within the bladder, which
[2024-01-31] MEDS: ONDANSETRON INJ 4 MG/2 ML VIAL IV PUSH (11:02)
[2024-01-31] MEDS: diphenhydrAMINE HCl INJ 50 MG/ML VIAL 25 MG IV PUSH (11:02)
[2024-01-31] MEDS: KETOROLAC 30 MG/ML VIAL (*BKC) IV PUSH (11:02)
[2024-01-31] MEDS: DEXTROSE 5%/LACTATED RINGERS 1,000 ML 125 ML IV CONT (11:03)
--- NOTE | 2024-01-31 13:40 | PC.NURSE ---
Dr. Hernandez here and took choi catheter out. Pt tolerated well
[2024-01-31] MEDS: SIMETHICONE 80 MG TAB.CHEW PO ×2 (14:27→20:40)
[2024-01-31] MEDS: DOCUSATE SODIUM 100 MG CAPSULE PO (17:03)
[2024-01-31] MEDS: oxyCODONE HCL (*CRX) 5 MG TAB IR PO (20:40)
[2024-02-01 04:50] VITALS: BP 110/51; PULSE 62; RESP 18; TEMP 36.8
[2024-02-01 04:56] LABS: Basophils Percent Auto 0.3 % (0.2-1.2); Eosinophils Percent Auto 0.1 % (0-4.4); Hematocrit 38.7 % (37.0-47.0); Hemoglobin 12.4 g/dL (12.0-15.0); Immature Granulocyte Absolute 0.06 K/mm3 (0.00-0.031); Immature Granulocyte Percent A 0.4 % (0-0.5); Lymphocytes Absolute Auto 1.55 K/mm3 (0.9-3.2); Mean Corpuscular Hemoglobin 32.2 pg (26-34); Mean Corpuscular Volume 100.5 fl (80-100); Monocytes Absolute Auto 0.8 K/mm3 (0.1-0.6); Neutrophils Absolute Auto 11.6 K/mm3 (1.3-6.7); Neutrophils Percent Auto 82.2 % (45.5-73.1); Platelet Count Result 228 k/mm3 (150-375); Red Blood Count 3.85 M/mm3 (4.2-5.4); Red Cell Distribution Width 13.6 % (11.5-14.5); White Blood Count 14.1 K/mm3 (4.5-10.0)
[2024-02-01 05:27] LABS: Anion Gap 5 mmol/L (4-12); Blood Urea Nitrogen 8 mg/dL (7-17); Carbon Dioxide 27 mmol/L (22-30); Chloride 103 mmol/L (98-107); Estimated CRCL calculation 86 ml/min; Estimated Glomerular Filt Rate > 60; Glucose 103 mg/dL (65-110); Potassium 3.8 mmol/L (3.4-5.0); Sodium 135 mmol/L (137-145)
--- NOTE | 2024-02-01 07:33 | PM.GYNPNOP ---
BOOKBINDER APPRENTICE - A/P Assessment and plan (1) S/P laparoscopic hysterectomy: Code(s): Z90.710 - Acquired absence of both cervix and uterus Status: Acute Postoperative Procedures: Procedures Operation Date: 01/31/24 07:30 Actual Procedure Side Surgeon p Robotic Assisted Total Laparoscopic Hysterectomy with Bilateral Salpingectomy Bilateral Jane Hernandze MD Postoperative day: 1 Postoperative status: doing well Postoperative plan: routine post-op care and discharge Time Spent With Patient Time: Total time spent is greater than 50% in coordination of care (as documented) at patient's floor/unit and/or counseling patient: Time with patient: less than 15 minutes BOOKBINDER APPRENTICE- PN:Subj Post-Op Subjective Date/time seen: 02/01/24 07:13 Interval history: POD#1 Carol reports doing great today. No issues overnight. Her pain is controlled; only took one dose of pain meds overnight. She has tolerated regular diet. She denies any vaginal bleeding. She has voided. She has not passed flatus yet, but hears her bowels moving. She has ambulated around the halls and denies any symptoms of anemia. She is ready to go home. Review of Systems Review of Systems: All systems reviewed & are unremarkable except as noted in HPI and below (HPI) Constitutional: Constitutional: Denies chills, Denies fever(s) and Denies headache(s) ENT: Denies dizziness and Denies headache(s) Cardiovascular: Cardiovascular: Denies chest pain and Denies rapid heart rate Respiratory: Respiratory: Denies cough Genitourinary: Genitourinary: Denies abnormal vaginal bleeding Neurologic: Denies dizziness and Denies headache(s) Exam Const: General: cooperative, healthy appearing, comfortable and no acute distress Orientation/consciousness: patient oriented x3 Resp: Effort & Inspection: normal respiratory effort Auscultation: clear to auscultation bilaterally Cardio: Rate: regular rate GI: Inspection: normal to inspection and incision ( LSC incisions c/d/i-- ecchymosis noted) GI Palp: Yes abdominal tenderness (appropriate) and Yes Soft to palpation Auscultation: normal bowel sounds : Other: normal bleeding on pad Skin: General skin exam: normal color Neuro: General: patient oriented x3 Psych: Appearance: grossly normal Affect: normal affect Attitude: cooperative BOOKBINDER APPRENTICE - PN: Obj Data Vital Signs Vital Signs: Vital Signs - 24 hr 01/31/24 09:27 01/31/24 09:40 01/31/24 09:55 Temperature 97.2 F L Pulse Rate 89 92 95 Respiratory Rate 12 12 12 Blood Pressure 121/74 125/75 133/66 Pulse Oximetry 98 100 100 Oxygen Delivery Simple Face Mask Simple Face Mask Simple Face Mask Oxygen Flow Rate 6 6 6 01/31/24 10:05 01/31/24 10:10 01/31/24 10:25 Temperature Pulse Rate 96 92 Respiratory Rate 12 12 Blood Pressure 114/70 113/77 Pulse Oximetry 96 94 Oxygen Delivery Room Air Room Air Room Air Oxygen Flow Rate 01/31/24 10:37 01/31/24 10:55 01/31/24 17:00 Temperature 97.0 F L 97.1 F L 98.3 F Pulse Rate 94 91 74 Respiratory Rate 12 18 16 Blood Pressure 110/68 123/69 100/67 Pulse Oximetry 95 94 99 Oxygen Delivery Room Air Oxygen Flow Rate 01/31/24 20:40 01/31/24 20:40 02/01/24 04:50 Temperature 98.8 F 98.2 F Pulse Rate 70 62 Respiratory Rate 18 18 Blood Pressure 104/51 L 110/51 L Pulse Oximetry 100 Oxygen Delivery Room Air Oxygen Flow Rate 02/01/24 04:50 Temperature Pulse Rate Respiratory Rate Blood Pressure Pulse Oximetry Oxygen Delivery Room Air Oxygen Flow Rate Intake/Output Intake/Output: Intake & Output 01/29/24 01/30/24 01/31/24 02/01/24 23:59 23:59 23:59 23:59 Intake Total 3150 Output Total 1660 Balance 1490 Meds/Results Medications: Active Medications Generic Name Dose Route Start Last Admin Trade Name Freq PRN Reason Stop Dose Admin Acetaminophen 1,000 mg 01/31/24 14:00 01/31/24 21:08 Acetaminophen 500 Mg Tablet PO Not Given Q8H JEVON
[2024-02-01 08:00] VITALS: BP 105/51; PULSE 72; RESP 16; TEMP 36.9; O2SAT 100
[2024-02-01] MEDS: SIMETHICONE 80 MG TAB.CHEW PO (08:14)
[2024-02-01] MEDS: DOCUSATE SODIUM 100 MG CAPSULE PO (08:14)
[2024-02-01] MEDS: IBUPROFEN 600 MG TABLET PO (08:15)
== END 2024-02-01 08:45 | disposition home or self-care (01) ==
LOC: ANHSURGERY 06:00 → ANHOB2 10:41
PROVIDERS: PCP Internal Medicine; Visit Provider Obstetrics & Gynecology
PROC: (CPT 58571; principal; 2024-01-31 07:30)
DX: N80.A0 Endometriosis of bladder, unspecified depth (principal); N80.329 Endometriosis of the posterior cul-de-sac, unspecified depth; N83.202 Unspecified ovarian cyst, left side; N72 Inflammatory disease of cervix uteri; N80.03 Adenomyosis of the uterus; N99.85 Post endometrial ablation syndrome; Z87.891 Personal history of nicotine dependence
CPT/HCPCS: 58571; S2900; 36415; 80048; 85025; 88307; 99199; A9270; J0690; J1100; J1170; J1200; J1836; J1885; J2250; J2405; J2704; J3010; J7030; J7120; J7121

== ENCOUNTER 2024-02-23 15:51 | Emergency (ER) | payer OTHER, SELFPAY ==
--- NOTE | ~2024-02-23 | CT_ITS ---
EXAMINATION: CT abdomen pelvis w con DATE: 02/23/2024 16:18 INDICATION: Lower abdominal pain. Recent hysterectomy. TECHNIQUE: Computed tomography (CT) of the abdomen and pelvis was performed with 100 mL Omnipaque 350 intravenous contrast. Automated exposure control and iterative reconstruction technique were employe d. The dose-length product was 331.91 mGy-cm. COMPARISON: None. FINDINGS: The visualized portions of the lung bases are clear without pneumonia or pleural effusion. The heart size is normal. No pericardial effusion. There are cysts in the liver measuring up to 10 mm . The gallbladder, spleen, pancreas, adrenal glands, and right kidney are normal. There is a 5 mm cys t in left kidney. There is diverticulosis of the colon without evidence of diverticulitis. There are no dilated loops of bowel. The appendix is normal. There are no pathologically enlarged lymph nodes. There is no free intraperitoneal fluid. There is mild lumbar spondylosis. IMPRESSION: 1. No etiology for the patient's symptoms. Reviewed, dictated and finalized at location A.
[2024-02-23 15:53] VITALS: BP 131/68; PULSE 85; RESP 20; TEMP 36.4; O2SAT 100
[2024-02-23 16:09] LABS: Basophils Absolute Auto 0.1 K/mm3 (0.0-0.1); Basophils Percent Auto 1.1 % (0.2-1.2); Eosinophils Absolute Auto 0.2 K/mm3 (0-0.3); Eosinophils Percent Auto 2.4 % (0-4.4); Hemoglobin 13.8 g/dL (12.0-15.0); Immature Granulocyte Absolute 0.03 K/mm3 (0.00-0.031); Immature Granulocyte Percent A 0.4 % (0-0.5); Lymphocytes Percent Auto 26.6 % (18.3-44.2); Mean Corpuscular HGB Conc 31.4 g/dl (32-36); Mean Corpuscular Hemoglobin 31.9 pg (26-34); Mean Corpuscular Volume 101.6 fl (80-100); Mean Platelet Volume 11.8 fl (7.4-10.4); Monocytes Absolute Auto 0.6 K/mm3 (0.1-0.6); Monocytes Percent Auto 8.2 % (2.6-8.5); Neutrophils Absolute Auto 4.6 K/mm3 (1.3-6.7); Neutrophils Percent Auto 61.3 % (45.5-73.1); Platelet Count Result 243 k/mm3 (150-375); Red Blood Count 4.33 M/mm3 (4.2-5.4); Red Cell Distribution Width 13.2 % (11.5-14.5); White Blood Count 7.5 K/mm3 (4.5-10.0)
[2024-02-23 16:17] LABS: Estimated CRCL calculation 74 ml/min; Estimated Glomerular Filt Rate > 60
[2024-02-23 16:20] LABS: Alanine Aminotransferase 13 U/L (6-35); Albumin Level 4.5 g/dL (3.5-5.1); Alkaline Phosphatase 67 U/L (38-126); Anion Gap 6 mmol/L (4-12); Aspartate Amino Transferase 32 U/L (14-36); Bilirubin,Total 0.6 mg/dL (0.2-1.3); Blood Urea Nitrogen 12 mg/dL (7-17); Calcium 8.9 mg/dL (8.4-10.2); Carbon Dioxide 27 mmol/L (22-30); Chloride 105 mmol/L (98-107); Estimated CRCL calculation 86 ml/min; Estimated Glomerular Filt Rate > 60; Glucose 115 mg/dL (65-110); Potassium 3.9 mmol/L (3.4-5.0); Sodium 138 mmol/L (137-145)
--- NOTE | 2024-02-23 16:27 | ED.GENADULT ---
HPI - General Adult General Chief complaint: Vaginal Bleeding Stated complaint: vaginal bleeding Time Seen by Provider: 02/23/24 15:54 History of Present Illness HPI narrative: Patient is a 49-year-old female who presents ER with vaginal bleeding status post robotic hysterectomy. Surgery was performed on 01/31/2024. Patient had ample rest. Ten days later she started leaving the home and started having pressure in the suprapubic region. She then went on a car ride and had 2 small blood clots come from her vagina the size the pinky finger. She has had some intermittent spotting since then. This morning she had some bright red blood that did not go away when she was wiping. She went and saw her surgeon who referred her here for imaging to evaluate for a pelvic abscess or hematoma. No fevers or chills or sweats. No vaginal penetration has occurred since her surgery other than a speculum exam that occurred today. Related Data Home Medications Medication Instructions Recorded Confirmed ubrogepant 50 mg tablet (Ubrelvy) 100 mg PO DAILY PRN Migraine 11/10/23 02/23/24 Headache Lactobacillus 40-Bifidobact 1 cap PO DAILY 01/25/24 02/23/24 3-S.thermophilus 100 billion cell capsule (Probiotic) cyanocobalamin (vitamin B-12) 1,000 mcg PO DAILY 01/25/24 02/23/24 1,000 mcg tablet (Vitamin B-12) magnesium glycinate 100 mg tablet 200 mg PO DAILY 01/25/24 02/23/24 thiamine HCl (vitamin B1) 100 mg 100 mg PO DAILY 01/25/24 02/23/24 tablet (Vitamin B-1) cyclobenzaprine 10 mg tablet mg PO 02/23/24 02/23/24 ondansetron HCl 4 mg tablet mg PO 02/23/24 02/23/24 Allergies Allergy/AdvReac Type Severity Reaction Status Date / Time morphine Allergy Severe Hives / Verified 02/23/24 14:55 Red Face Sulfa (Sulfonamide Allergy Severe Itching Verified 02/23/24 14:55 Antibiotics) sulfanilamide Allergy Severe Hives Verified 02/23/24 14:55 metoclopramide [From Reglan] AdvReac Severe Anxiety Verified 02/23/24 14:55 prochlorperazine AdvReac Severe Anxiety Verified 02/23/24 14:55 [From Compazine] cetirizine [From Zyrtec-D] AdvReac Mild Other Verified 02/23/24 14:55 pseudoephedrine AdvReac Mild Other Verified 02/23/24 14:55 [From Graphic Indiate-D] Review of Systems Review of Systems: All systems reviewed & are unremarkable except as noted in HPI and below Constitutional: Constitutional: Reports no additional constitutional complaints Cardiovascular: Cardiovascular: Reports no additional cardiovascular complaints Respiratory: Respiratory: Reports no additional respiratory complaints Gastrointestinal: Gastrointestinal: Reports abdominal pain, Denies diarrhea, Denies nausea and Denies vomiting Genitourinary: Genitourinary: Reports abnormal vaginal bleeding, Denies hematuria, Denies nocturia and Denies vaginal discharge ON LICENSE OF [facility] Past Medical History Medical History Chronic back pain Glaucoma Surgical History Surgical History H/O left breast biopsy benign H/O tubal ligation History of dilation and curettage 1999 History of endometrial ablation History of gynecologic surgery (01/31/24) Robotic assisted total laparoscopic hysterectomy with bilateral salpingectomy and cystoscopy Family History Family History Mother Family history of liver disease Family history of chronic obstructive pulmonary disease Family history of diabetes mellitus in first degree relative Family history of heart disease in male family member before age 55 Sibling Sjogren syndrome, unspecified Other Depression Diabetes mellitus Family history of malignant neoplasm Family history of mental disorder Hypertension Social History Social History Social History: the patient is and lives with her . It she has 3 children.
[2024-02-23 16:28] LABS: Prothrombin Time 13.7 Seconds (11.1-14.7)
[2024-02-23 16:29] LABS: Partial Thromboplastin Time 28.8 Seconds (22.3-36.8)
[2024-02-23 16:39] LABS: Appearance Urine Clear (Clear); Bilirubin Urine Negative (Negative); Blood Urine Negative (Negative); Color Urine Yellow (Yellow); Glucose Urine UA Negative (Negative); Ketones Urine Negative (Negative); Leukocyte Esterase Ur Negative LEU/UL (Negative); Nitrate Urine Negative (Negative); Protein Urine Negative (Negative); Urobilinogen Urine 0.2 mg/dL (<2.0); pH Urine 5.5 (5.0-9.0)
[2024-02-23 16:43] LABS: Add Urine Microscopic? NO
== END 2024-02-23 17:09 | disposition home or self-care (01) ==
PROVIDERS: Emergency Provider Emergency Medicine; PCP Internal Medicine
DX: N99.820 Postprocedural hemorrhage of a genitourinary system organ or structure following a genitourinary system procedure (principal); Z90.710 Acquired absence of both cervix and uterus; H40.9 Unspecified glaucoma; Z87.891 Personal history of nicotine dependence
CPT/HCPCS: 36415; 74177; 80053; 81003; 85025; 85610; 85730; 99284; Q9967

== ENCOUNTER 2024-03-09 12:27 | Outpatient (CLI) | payer OTHER, SELFPAY ==
--- NOTE | ~2024-03-09 | XR_ITS ---
EXAMINATION: XR abdomen w oblique DATE: 03/09/2024 13:06 INDICATION: Constipation. TECHNIQUE: Anteroposterior and bilateral oblique views of the abdomen on 4 radiographs were obtained. COMPARISON: CT abdomen and pelvis 02/23/2024 FINDINGS: There are no dilated loops of bowel. There is a large volume of stool in the colon. There a re phleboliths in the pelvis. IMPRESSION: 1. Large volume of stool in colon. Reviewed, dictated and finalized at location A.
[2024-03-09 13:00] LABS: Basophils Absolute Auto 0.1 K/mm3 (0.0-0.1); Eosinophils Absolute Auto 0.2 K/mm3 (0-0.3); Eosinophils Percent Auto 2.2 % (0-4.4); Hematocrit 43.2 % (37.0-47.0); Hemoglobin 13.8 g/dL (12.0-15.0); Immature Granulocyte Absolute 0.02 K/mm3 (0.00-0.031); Immature Granulocyte Percent A 0.3 % (0-0.5); Lymphocytes Absolute Auto 1.87 K/mm3 (0.9-3.2); Lymphocytes Percent Auto 27.8 % (18.3-44.2); Mean Corpuscular HGB Conc 31.9 g/dl (32-36); Mean Corpuscular Hemoglobin 32.1 pg (26-34); Mean Corpuscular Volume 100.5 fl (80-100); Mean Platelet Volume 12.1 fl (7.4-10.4); Monocytes Absolute Auto 0.5 K/mm3 (0.1-0.6); Monocytes Percent Auto 7.6 % (2.6-8.5); Neutrophils Absolute Auto 4.1 K/mm3 (1.3-6.7); Neutrophils Percent Auto 61.1 % (45.5-73.1); Platelet Count Result 183 k/mm3 (150-375); Red Cell Distribution Width 13.5 % (11.5-14.5); White Blood Count 6.7 K/mm3 (4.5-10.0)
[2024-03-09 13:21] LABS: Alanine Aminotransferase 12 U/L (6-35); Albumin Level 4.3 g/dL (3.5-5.1); Alkaline Phosphatase 71 U/L (38-126); Anion Gap 4 mmol/L (4-12); Aspartate Amino Transferase 20 U/L (14-36); Bilirubin,Total 0.5 mg/dL (0.2-1.3); Blood Urea Nitrogen 9 mg/dL (7-17); Carbon Dioxide 29 mmol/L (22-30); Chloride 107 mmol/L (98-107); Estimated Glomerular Filt Rate > 60; Glucose 90 mg/dL (65-110); Potassium 3.9 mmol/L (3.4-5.0); Sodium 140 mmol/L (137-145)
== END 2024-03-09 12:28 | disposition home or self-care (01) ==
PROVIDERS: PCP Internal Medicine; Visit Provider Obstetrics & Gynecology
DX: R10.9 Unspecified abdominal pain (principal); N93.9 Abnormal uterine and vaginal bleeding, unspecified; Z90.710 Acquired absence of both cervix and uterus; K59.00 Constipation, unspecified
CPT/HCPCS: 36415; 74021; 80053; 85025